=== PATIENT | female | born 1960 | race Caucasian/White ===

== ENCOUNTER 2021-09-26 19:12 | Emergency (ER) | payer MEDICAID, OTHER ==
[~2021-09-26] VITALS: Ht 167.6 cm; Wt 130.0 kg
[2021-09-26 19:58] LABS: Basophils # (auto) 0 10 ^3/uL (0-0.2); Basophils % (auto) 0.2 % (0.0-2.0); Eosinophils # (auto) 0 10 ^3/uL (0-0.8); Eosinophils % (auto) 0.5 % (0.0-7.0); Hematocrit 40.5 % (36.0-46.0); Hemoglobin 13.2 g/dL (12.2-16.2); Lymphocytes # (auto) 1.3 10 ^3/uL (0.4-5.4); Lymphocytes % (auto) 30.9 % (10.0-50.0); Mean Corpuscular Hemoglobin 28.6 pg (28.0-32.0); Mean Corpuscular Hgb Conc. 32.5 g/dL (32.0-36.0); Mean Corpuscular Volume 87.9 fL (80.0-100.0); Monocytes # (auto) 0.2 10 ^3/uL (0-1.3); Neutrophils # (auto) 2.6 10 ^3/uL (1.6-8.6); Neutrophils % (auto) 62.4 % (37.0-80.0); Red Cell Distribution Width 14.7 % (11.8-14.3); White Blood Cell 4.1 10^3/uL (4.4-10.8)
[2021-09-26 20:13] LABS: INR 1.03 (0.9-1.15); Partial Thromboplastin Time 26.5 sec (24.6-33.4)
[2021-09-26 20:14] LABS: Albumin 4.3 g/dL (3.4-5.0); Calcium 9.2 mg/dL (8.5-10.1); Potassium 3.6 mmol/L (3.5-5.1)
[2021-09-26 20:19] LABS: Bilirubin, Total 0.9 mg/dL (0.2-1.0); Total Protein 7.6 g/dL (6.4-8.2)
[2021-09-26] MEDS ORDERED: metroNIDAZOLE 500 MG TAB PO ONE (22:30)
[2021-09-26] MEDS ORDERED: cefTRIAXone SOD 500 MG VL IM ONE (22:30)
[2021-09-26] MEDS ORDERED: DOXYCYCLINE 100 MG TAB/CAP PO ONE (22:30)
[2021-09-26 23:30] LABS: Urine Bacteria FEW /hpf (None Seen); Urine Blood Negative /uL (Negative); Urine Hyaline Cast MANY /lpf (0 - 2); Urine Mucus FEW (None Seen); Urine Specific Gravity 1.026 (1.001-1.035); Urine WBC 83 /hpf (0 - 5)
[2021-09-27 08:30] VITALS: BP 133/68
[2021-09-28 06:06] LABS: RPR Non Reactive (Non Reactive)
[2021-09-29 10:42] LABS: Hepatitis A Ab IgM Negative; Hepatitis B Core IgM Negative; Hepatitis C Antibody Negative (Negative)
== END 2021-09-27 08:35 | disposition still patient (30) ==
LOC: ER 19:12 → EDBD 19:12 → ER 09-27 08:35
DX: N39.0 Urinary tract infection, site not specified (principal); T74.21XA Adult sexual abuse, confirmed, initial encounter
CPT/HCPCS: 36415; 80053; 80074; 81001; 81025; 85025; 85610; 85730; 86592; 86703; 86850; 86900; 86901; 87491; 87591; 96372; 99283; J0696